=== PATIENT | female | born 1955 | race Two or more races ===

== ENCOUNTER 2022-09-30 08:25 | Day surgery (SDC) | payer OTHER ==
[~2022-09-30] VITALS: Ht 162.6 cm; Wt 84.4 kg
[~2022-09-30 08:25] MED LIST: ATORVASTATIN CA10 MG PO; COZAAR25 MG PO; ESOMEPRAZOLE MA40 MG PO; FAMOTID PO; LINZESS145 MCG PO; VITAMIN B12 PO; VITAMIN D PO
== END 2022-09-30 20:50 | disposition home or self-care (01) ==
LOC: CIR.AMB 08:25
PROVIDERS: ATTEND Obstetrics & Gynecology
DX: D25.0 Submucous leiomyoma of uterus (principal); R87.618 Other abnormal cytological findings on specimens from cervix uteri; I10 Essential (primary) hypertension; Z20.822 Contact with and (suspected) exposure to COVID-19

== ENCOUNTER 2025-04-17 10:00 | Inpatient (IN) | payer OTHER ==
[~2025-04-17] VITALS: Ht 152.4 cm; Wt 84.8 kg
[2025-04-17] MEDS ORDERED: LINZESS145 MCG (14:34)
[2025-04-17] MEDS ORDERED: SYNTHROID112 MCG (14:34)
[2025-04-17] MEDS ORDERED: OMEGA (14:35)
[2025-04-17] MEDS ORDERED: [UNRECOGNIZED DRUG - OTHER] (14:35)
[2025-04-17] MEDS ORDERED: VITAMIN (14:35)
[2025-04-23] MEDS ORDERED: METRONIDAZOLE/SODIUM CHLORIDE 500 MG/100 ML PIGGYBACK IV ONE (07:05)
[2025-04-23] MEDS ORDERED: CEFTRIAXONE SODIUM 2,000 MG VIAL ONE (07:05)
[2025-04-23] MEDS ORDERED: LIDOCAINE HCL 1%/EPINEPHRINE 20ML VIAL IJ ONE (07:23)
[2025-04-23] MEDS ORDERED: BUPIVACAINE HCL/Mpf 0.5% 10ML VIAL ONE (07:23)
[2025-04-23] MEDS ORDERED: SUGAMMADEX SODIUM 200 MG/2 ML VIAL IV ONE (11:13)
[2025-04-23] MEDS ORDERED: RINGERS SOLUTION,LACTATED 1,000 ML IV SCH (12:45)
[2025-04-23] MEDS ORDERED: OxyCODONE HCL 5 MG TABLET (ROXICODONE) PO PRN (12:45)
[2025-04-23] MEDS ORDERED: MORPHINE SULFATE 4 MG/ML CARTRIDGE IV PRN (12:45)
[2025-04-23] MEDS ORDERED: ONDANSETRON HCL 2 MG/ML VIAL IV PRN (12:45)
[2025-04-23] MEDS ORDERED: SIMETHICONE 125 MG CAPSULE PO SCH (13:00)
[2025-04-23] MEDS ORDERED: HYOSCYAMINE SULFATE 0.125 MG TAB.SUBL SL SCH (13:00)
[2025-04-23] MEDS ORDERED: ENALAPRILAT DIHYDRATE 1.25 MG/ML VIAL IV PRN (14:00)
[2025-04-23] MEDS ORDERED: ACETAMINOPHEN 500 MG GEL..CAP PO SCH (14:00)
[2025-04-23 14:38] LABS: ABG PH 7.368 (7.35-7.45); ABG PO2 224.3 mmHg (80-100)
[2025-04-23 14:39] LABS: BICARBONATE 23.1 mmol/l (23-25)
[2025-04-23 14:47] LABS: o2 44 %
[2025-04-23 15:13] LABS: BASO % 0.1 % (0.1-1.2); EOS # 0.00 (0.04-0.54); EOS % 0.0 % (0.7-7.0); LYMPH # 0.76 (1.18-3.74); LYMPH % 5.7 % (19.3-53.1); MEAN PLATELET VOLUME 11.00 fl (9.4-12.4); MONO # 0.75 (0.24-0.82); MONO % 5.6 % (4.7-12.5); NEUT # 11.89 (1.56-6.13); NEUT % 88.4 % (34.0-71.1); RED CELL DISTRIBUTION WIDTH 14.0 % (11.6-14.4)
[2025-04-23] MEDS ORDERED: METOCLOPRAMIDE HCL 5 MG/ML VIAL ONE (16:25)
[2025-04-23] MEDS ORDERED: GABAPENTIN 300 MG CAPSULE PO ONE (16:25)
[2025-04-23] MEDS ORDERED: HYOSCYAMINE SULFATE 0.125 MG TAB.SUBL ONE (16:25)
[2025-04-23] MEDS ORDERED: SIMETHICONE 125 MG CAPSULE PO ONE (16:25)
[2025-04-23] MEDS ORDERED: CELECOXIB 200 MG CAPSULE PO ONE (16:26)
[2025-04-23] MEDS ORDERED: GABAPENTIN 300 MG CAPSULE PO SCH (17:00)
[2025-04-23] MEDS ORDERED: CELECOXIB 200 MG CAPSULE PO SCH (17:00)
[2025-04-23] MEDS ORDERED: METOCLOPRAMIDE HCL 5 MG/ML VIAL IV SCH (17:00)
[2025-04-23 18:32] VITALS: BP 133/80; O2SAT 95
[2025-04-23 19:18] VITALS: O2SAT 98
[2025-04-23] MEDS ORDERED: FAMOTIDINE/PF 20 MG/2 ML VIAL IV PUSH SCH (21:00)
[2025-04-24] VITALS (9 sets, daily range): BP systolic 107–128; BP diastolic 71–76; O2SAT 93–98
[2025-04-24] MEDS ORDERED: PATIENTS OWN MEDICATION (MEDICAMENTO EN PISO) PO SCH (06:00)
[2025-04-24 07:11] LABS: BASO % 0.4 % (0.1-1.2); EOS # 0.01 (0.04-0.54); EOS % 0.1 % (0.7-7.0); LYMPH # 1.30 (1.18-3.74); LYMPH % 9.1 % (19.3-53.1); MEAN PLATELET VOLUME 10.50 fl (9.4-12.4); MONO # 0.94 (0.24-0.82); MONO % 6.6 % (4.7-12.5); NEUT # 11.93 (1.56-6.13); NEUT % 83.4 % (34.0-71.1); RED CELL DISTRIBUTION WIDTH 14.2 % (11.6-14.4)
[2025-04-24 07:31] LABS: BUN CREA RATIO 10.0 (7.0-25.0); CREATININE SERUM 1.03 mg/dL (0.55-1.02); GFR 52.82; GLUCOSE FASTING 110.0 mg/dL (65-100); OSMOLALITY SERUM 283.0 MOSM/KG (275-295)
[2025-04-24] MEDS ORDERED: MAGNESIUM SULFATE IN WATER 50 ML IV ONE (08:15)
[2025-04-24] MEDS ORDERED: LOSARTAN POTASSIUM 25 MG TABLET PO SCH (09:00)
[2025-04-24] MEDS ORDERED: LACTULOSE 20 G/30 ML BLIST.PACK PO SCH (09:00)
[2025-04-24] MEDS ORDERED: LACTOBACILLUS ACIDOPHILUS 1 CAP CAP PO SCH (09:00)
[2025-04-24] MEDS ORDERED: AMINO ACIDS 1 EACH TABLET PO SCH (17:00)
[2025-04-24] MEDS ORDERED: ENOXAPARIN SODIUM 40 MG/0.4 ML SYRINGE SUBCUTANEO SCH (17:00)
[2025-04-24] MEDS ORDERED: ATORVASTATIN CALCIUM 40 MG TABLET PO SCH (17:00)
[2025-04-25] VITALS (9 sets, daily range): BP systolic 105–136; BP diastolic 60–82; O2SAT 90–99
[2025-04-25] MEDS ORDERED: ENOXAPARIN SODIUM 40 MG/0.4 ML SYRINGE SUBCUTANEO SCH (09:00)
[2025-04-25 10:26] LABS: BASO % 0.3 % (0.1-1.2); EOS # 0.22 (0.04-0.54); EOS % 1.0 % (0.7-7.0); LYMPH # 1.36 (1.18-3.74); LYMPH % 6.5 % (19.3-53.1); MEAN PLATELET VOLUME 11.40 fl (9.4-12.4); MONO # 0.76 (0.24-0.82); MONO % 3.6 % (4.7-12.5); NEUT # 18.38 (1.56-6.13); NEUT % 87.6 % (34.0-71.1); RED CELL DISTRIBUTION WIDTH 14.2 % (11.6-14.4)
[2025-04-25 11:03] LABS: BUN CREA RATIO 12.0 (7.0-25.0); CREATININE SERUM 0.89 mg/dL (0.55-1.02); GFR 62.52; GLUCOSE FASTING 116.0 mg/dL (65-100); OSMOLALITY SERUM 274.0 MOSM/KG (275-295)
[2025-04-25] MEDS ORDERED: PIPERACILLIN/TAZOBACTAM SODIUM 3.375 GM in 0.9 % SODIUM CHLORIDE 100 ML IV SCH (12:00)
[2025-04-25] MEDS ORDERED: POTASSIUM PHOS,M-BASIC-D-BASIC 3 MM/ML VIAL IV NR (13:00)
[2025-04-25 17:18] LABS: URINE APPEARANCE Clear; URINE BILIRRUBIN Negative (NEGATIVE); URINE BLOOD Trace; URINE COLOR Yellow; URINE GLUCOSE Negative (NEGATIVE); URINE KETONE Negative (NEGATIVE); URINE LEUKOCYTE Negative; URINE NITRATE Negative; URINE PROTEIN Negative (NEGATIVE); URINE UROBILINOGEN 0.2 E.U./dl
[2025-04-25 17:19] LABS: URINE BACTERIA 11.9 uL (0.0-1933); URINE EPITHELIAL CELLS 8.1 uL (0.0-38.8); URINE RBC 3.0 uL (0.0-20.8); URINE WBC 8.7 uL (0.0-23.2)
[2025-04-25 17:24] LABS: URINE CAST 0.00 uL (0.0-1.40)
[2025-04-26 06:54] LABS: BASO % 0.2 % (0.1-1.2); EOS # 0.33 (0.04-0.54); EOS % 2.2 % (0.7-7.0); LYMPH # 1.10 (1.18-3.74); LYMPH % 7.3 % (19.3-53.1); MEAN PLATELET VOLUME 11.20 fl (9.4-12.4); MONO # 0.65 (0.24-0.82); MONO % 4.3 % (4.7-12.5); NEUT # 12.79 (1.56-6.13); NEUT % 85.2 % (34.0-71.1); RED CELL DISTRIBUTION WIDTH 14.1 % (11.6-14.4)
[2025-04-26 08:08] LABS: ALT/SGPT 62.0 U/L (12-78); AST/SGOT 35.0 U/L (15-37); BILIRUBIN TOTAL 1.06 mg/dL (0.3-1.2); BUN CREA RATIO 13.0 (7.0-25.0); CREATININE SERUM 0.67 mg/dL (0.55-1.02); GFR 86.76; GLOBULINA 2.8 G/DL (2.4-3.5); GLUCOSE FASTING 78.0 mg/dL (65-100); OSMOLALITY SERUM 277.0 MOSM/KG (275-295)
[2025-04-26 08:43] VITALS: BP 113/68; O2SAT 95
[2025-04-26] MEDS ORDERED: SOD FERRIC GLUC COMPLX/SUCROSE 62.5 MG in 0.9 % SODIUM CHLORIDE 50 ML IV SCH (10:04)
[2025-04-26] MEDS ORDERED: Cyanocobalamin/Mecobalamin 1 TAB.SL SL SCH (10:05)
[2025-04-26 13:52] LABS: ABG PH 7.467 (7.35-7.45); ABG PO2 76.6 mmHg (80-100); BICARBONATE 23.5 mmol/l (23-25)
[2025-04-26 14:51] LABS: o2 21 %
[2025-04-26 16:11] VITALS: BP 121/72; O2SAT 98
[2025-04-27 00:36] VITALS: BP 98/61; O2SAT 95
[2025-04-27 07:48] LABS: BASO % 0.3 % (0.1-1.2); EOS # 0.36 (0.04-0.54); EOS % 2.7 % (0.7-7.0); LYMPH # 1.27 (1.18-3.74); LYMPH % 9.7 % (19.3-53.1); MEAN PLATELET VOLUME 10.60 fl (9.4-12.4); MONO # 0.79 (0.24-0.82); MONO % 6.0 % (4.7-12.5); NEUT # 10.59 (1.56-6.13); NEUT % 80.7 % (34.0-71.1); RED CELL DISTRIBUTION WIDTH 14.2 % (11.6-14.4)
[2025-04-27 08:00] VITALS: BP 112/73; O2SAT 96
[2025-04-27 08:06] LABS: BUN CREA RATIO 11.0 (7.0-25.0); CREATININE SERUM 0.62 mg/dL (0.55-1.02); GFR 94.89; GLUCOSE FASTING 72.0 mg/dL (65-100); OSMOLALITY SERUM 280.0 MOSM/KG (275-295)
[2025-04-27 16:00] VITALS: BP 123/60; O2SAT 97
[2025-04-27] MEDS ORDERED: AMINO ACIDS/PROTEIN HYDROLYS 30 ML BLIST.PACK PO SCH (17:00)
[2025-04-28 00:05] VITALS: BP 142/77; O2SAT 95
[2025-04-28 08:00] VITALS: BP 133/79; O2SAT 95
[2025-04-28 16:00] VITALS: BP 121/65; O2SAT 95
[2025-04-29] VITALS: BP 127/76; O2SAT 95
[2025-04-29 06:14] LABS: BASO % 0.3 % (0.1-1.2); EOS # 0.29 (0.04-0.54); EOS % 2.9 % (0.7-7.0); LYMPH # 1.75 (1.18-3.74); LYMPH % 17.6 % (19.3-53.1); MEAN PLATELET VOLUME 10.00 fl (9.4-12.4); MONO # 0.97 (0.24-0.82); MONO % 9.8 % (4.7-12.5); NEUT # 6.43 (1.56-6.13); NEUT % 64.8 % (34.0-71.1); RED CELL DISTRIBUTION WIDTH 14.2 % (11.6-14.4)
[2025-04-29 06:42] LABS: BUN CREA RATIO 17.0 (7.0-25.0); CREATININE SERUM 0.59 mg/dL (0.55-1.02); GFR 100.48; GLUCOSE FASTING 80.0 mg/dL (65-100); OSMOLALITY SERUM 281.0 MOSM/KG (275-295)
[2025-04-29 07:35] VITALS: BP 135/78; O2SAT 97
[2025-04-29 07:35] LABS: BAND MAN 1.0 %; LYMPHOCYTE MAN 26.0 %; METAMYELOCYTE 2.0 %; MONOCYTE MAN 2.0 %; NEUTROPHILS MAN 65.0 %
[2025-04-29] MEDS ORDERED: GABAPENTIN 100 MG CAPSULE PO SCH (09:00)
[2025-04-29] MEDS ORDERED: POTASSIUM CHLORIDE 8 MEQ TABLET PO STA (11:43)
[2025-04-29] MEDS ORDERED: POTASSIUM CHLORIDE 20MEQ/100ML H2O PB IV ONE (11:45)
[2025-04-29 15:53] VITALS: BP 136/75; O2SAT 97
[2025-04-29] MEDS ORDERED: GABAPENTIN 300 MG CAPSULE PO SCH (21:00)
[2025-04-30 01:28] VITALS: BP 133/75; O2SAT 99
[2025-04-30 09:23] VITALS: BP 144/77; O2SAT 96
[2025-04-30 17:04] VITALS: BP 152/76; O2SAT 95
[2025-05-01 01:18] VITALS: BP 120/74; O2SAT 98
[2025-05-01 08:00] VITALS: BP 129/75; O2SAT 97
[2025-05-01 16:26] VITALS: BP 131/76; O2SAT 97
== END 2025-05-01 16:42 | disposition home or self-care (01) | DRG 332 ==
LOC: O/R 04-23 06:00 → SURH 04-23 07:00
PROVIDERS: Internal Medicine Geriatric Medicine; ADMIT Colon & Rectal Surgery; ATTEND Colon & Rectal Surgery
PROC: 0DJD8ZZ Inspection of Lower Intestinal Tract, Via Natural or Artificial Opening Endoscopic (ICD-10-PCS; 2025-04-23)
PROC: 8E0W4CZ Robotic Assisted Procedure of Trunk Region, Percutaneous Endoscopic Approach (ICD-10-PCS; 2025-04-23)
PROC: 4A12X4Z Monitoring of Cardiac Electrical Activity, External Approach (ICD-10-PCS; 2025-04-23)
PROC: 0DTP4ZZ Resection of Rectum, Percutaneous Endoscopic Approach (ICD-10-PCS; principal; 2025-04-23 07:00)
DX: K57.32 Diverticulitis of large intestine without perforation or abscess without bleeding (principal); J18.9 Pneumonia, unspecified organism; I11.9 Hypertensive heart disease without heart failure; E78.5 Hyperlipidemia, unspecified; E03.9 Hypothyroidism, unspecified; E66.9 Obesity, unspecified; R73.01 Impaired fasting glucose; G47.30 Sleep apnea, unspecified; D64.9 Anemia, unspecified
CPT/HCPCS: 44207; 44213; 45300; 93228; S2900

== ENCOUNTER 2025-05-09 13:02 | Emergency (ER) | payer OTHER ==
[~2025-05-09] VITALS: Ht 162.6 cm; Wt 84.8 kg
[~2025-05-09 13:02] MED LIST changes: +LINZESS145 MCG; +OMEGA; +SYNTHROID112 MCG; +VITAMIN; +[UNRECOGNIZED DRUG - OTHER]
[2025-05-09] MEDS ORDERED: 0.9 % SODIUM CHLORIDE 1,000 ML IV ONE (15:15)
[2025-05-09] MEDS ORDERED: ONDANSETRON HCL 2 MG/ML VIAL IV ONE (15:15)
[2025-05-09] MEDS ORDERED: FAMOTIDINE/PF 20 MG/2 ML VIAL IV ONE (15:15)
[2025-05-09] MEDS ORDERED: ACETAMINOPHEN 500 MG GEL..CAP PO ONE ×2 (15:15→15:34)
[2025-05-09] MEDS ORDERED: KETOROLAC TROMETHAMINE 30 MG VIAL IV ONE (15:15)
[2025-05-09] MEDS ORDERED: KETOROLAC TROMETHAMINE 30 MG VIAL ONE (15:33)
[2025-05-09] MEDS ORDERED: FAMOTIDINE/PF 20 MG/2 ML VIAL ONE (15:34)
[2025-05-09] MEDS ORDERED: ONDANSETRON HCL 2 MG/ML VIAL ONE (15:34)
[2025-05-09 15:49] LABS: BASO % 0.6 % (0.1-1.2); EOS # 0.03 (0.04-0.54); EOS % 0.3 % (0.7-7.0); LYMPH # 0.77 (1.18-3.74); LYMPH % 6.9 % (19.3-53.1); MEAN PLATELET VOLUME 9.30 fl (9.4-12.4); MONO # 0.81 (0.24-0.82); MONO % 7.2 % (4.7-12.5); NEUT # 9.48 (1.56-6.13); NEUT % 84.6 % (34.0-71.1); RED CELL DISTRIBUTION WIDTH 15.3 % (11.6-14.4)
[2025-05-09 15:59] LABS: ERYTHROCYTE SEDIMENTATION RATE 110 mm/hr (0-30)
[2025-05-09 17:10] LABS: ALT/SGPT 26.0 U/L (12-78); AST/SGOT 25.0 U/L (15-37); BILIRUBIN TOTAL 0.53 mg/dL (0.3-1.2); BUN CREA RATIO 10.0 (7.0-25.0); CREATININE SERUM 0.77 mg/dL (0.55-1.02); GFR 73.9; GLOBULINA 3.7 G/DL (2.4-3.5); GLUCOSE FASTING 120.0 mg/dL (65-100); OSMOLALITY SERUM 271.0 MOSM/KG (275-295)
[2025-05-09 17:19] LABS: URINE APPEARANCE Cloudy; URINE BILIRRUBIN Negative (NEGATIVE); URINE BLOOD Trace; URINE COLOR Yellow; URINE GLUCOSE Negative (NEGATIVE); URINE KETONE Negative (NEGATIVE); URINE LEUKOCYTE Trace; URINE NITRATE Negative; URINE PROTEIN 30 (NEGATIVE); URINE UROBILINOGEN 1.0 E.U./dl
[2025-05-09 17:22] LABS: URINE BACTERIA 25.2 uL (0.0-1933); URINE EPITHELIAL CELLS 53.6 uL (0.0-38.8); URINE RBC 18.4 uL (0.0-20.8); URINE WBC 37.0 uL (0.0-23.2)
[2025-05-09 17:25] LABS: INR 1.09
[2025-05-09 17:48] LABS: URINE CAST 0.00 uL (0.0-1.40)
[2025-05-09 17:49] LABS: URINE CRYSTALS FEW /HPF; URINE MUCUS SCANT
[2025-05-09 17:50] LABS: TYPE CELLS SQUAMOUS
[2025-05-09] MEDS ORDERED: AMOX-CLAV 875-1 EAC1 PO (21:56)
[2025-05-09] MEDS ORDERED: ACETAMINOPHEN500 M2 PO (21:56)
[2025-05-09] MEDS ORDERED: DICY20TA PO (21:56)
== END 2025-05-09 22:16 | disposition home or self-care (01) ==
LOC: ER 13:03
PROVIDERS: Emergency Medicine
DX: R10.9 Unspecified abdominal pain (principal); Z90.49 Acquired absence of other specified parts of digestive tract; I10 Essential (primary) hypertension
CPT/HCPCS: 36415; 74177; 93005; Q9965

== ENCOUNTER 2025-05-15 18:03 | Emergency (ER) | payer OTHER ==
[~2025-05-15] VITALS: Ht 162.6 cm; Wt 77.1 kg
[~2025-05-15 18:03] MED LIST changes: +ACETAMINOPHEN500 M2 PO; +AMOX-CLAV 875-1 EAC1 PO; +DICY20TA PO
[2025-05-15] MEDS ORDERED: KETOROLAC TROMETHAMINE 30 MG VIAL IU ONE (19:30)
[2025-05-15] MEDS ORDERED: ACETAMINOPHEN 325 MG TABLET PO ONE ×2 (19:30→19:36)
[2025-05-15] MEDS ORDERED: 0.9 % SODIUM CHLORIDE 1,000 ML IV ONE (19:30)
[2025-05-15] MEDS ORDERED: FAMOTIDINE/PF 20 MG/2 ML VIAL IV ONE (19:30)
[2025-05-15] MEDS ORDERED: ONDANSETRON HCL 2 MG/ML VIAL IV ONE (19:30)
[2025-05-15] MEDS ORDERED: FAMOTIDINE/PF 20 MG/2 ML VIAL ONE (19:36)
[2025-05-15] MEDS ORDERED: ONDANSETRON HCL 2 MG/ML VIAL ONE (19:36)
[2025-05-15] MEDS ORDERED: KETOROLAC TROMETHAMINE 30 MG VIAL ONE (19:36)
[2025-05-15 20:58] LABS: BASO % 0.7 % (0.1-1.2); EOS # 0.07 (0.04-0.54); EOS % 1.0 % (0.7-7.0); LYMPH # 1.41 (1.18-3.74); LYMPH % 20.6 % (19.3-53.1); MEAN PLATELET VOLUME 9.30 fl (9.4-12.4); MONO # 0.89 (0.24-0.82); NEUT # 4.37 (1.56-6.13); NEUT % 64.0 % (34.0-71.1); RED CELL DISTRIBUTION WIDTH 14.7 % (11.6-14.4)
[2025-05-15 20:59] LABS: ALT/SGPT 35.0 U/L (12-78); AST/SGOT 25.0 U/L (15-37); BILIRUBIN TOTAL 0.3 mg/dL (0.3-1.2); BUN CREA RATIO 12.0 (7.0-25.0); CREATININE SERUM 0.83 mg/dL (0.55-1.02); GFR 67.77; GLOBULINA 4.4 G/DL (2.4-3.5); GLUCOSE FASTING 133.0 mg/dL (65-100); OSMOLALITY SERUM 271.0 MOSM/KG (275-295)
[2025-05-15 21:04] LABS: MONO % 13.0 % (4.7-12.5)
[2025-05-15 21:12] LABS: COVID-19 AG NEGATIVE (NEGATIVE)
[2025-05-15 21:27] LABS: URINE APPEARANCE Clear; URINE BACTERIA 58.7 uL (0.0-1933); URINE BILIRRUBIN Negative (NEGATIVE); URINE BLOOD Negative; URINE COLOR Yellow; URINE EPITHELIAL CELLS 16.1 uL (0.0-38.8); URINE GLUCOSE Negative (NEGATIVE); URINE KETONE Negative (NEGATIVE); URINE LEUKOCYTE Negative; URINE NITRATE Negative; URINE PROTEIN Negative (NEGATIVE); URINE RBC 5.2 uL (0.0-20.8); URINE UROBILINOGEN 0.2 E.U./dl; URINE WBC 19.1 uL (0.0-23.2)
[2025-05-15 21:37] LABS: URINE CAST 0.14 uL (0.0-1.40)
== END 2025-05-16 00:34 | disposition home or self-care (01) ==
LOC: ER 18:03
PROVIDERS: General Practice
DX: R10.32 Left lower quadrant pain (principal); J98.11 Atelectasis; J47.9 Bronchiectasis, uncomplicated; I10 Essential (primary) hypertension; Z98.890 Other specified postprocedural states; Z20.822 Contact with and (suspected) exposure to COVID-19
CPT/HCPCS: 36415; 71250; 74177; 96365; 96366; 99284; J1885; J2405; J3490; J7030; Q9965

== ENCOUNTER 2025-06-14 13:57 | Emergency (ER) | payer OTHER ==
[~2025-06-14] VITALS: Ht 162.6 cm; Wt 78.9 kg
[2025-06-14 15:40] LABS: BASO % 0.6 % (0.1-1.2); EOS # 0.06 (0.04-0.54); EOS % 0.5 % (0.7-7.0); LYMPH # 2.47 (1.18-3.74); LYMPH % 20.8 % (19.3-53.1); MEAN PLATELET VOLUME 9.20 fl (9.4-12.4); MONO # 0.85 (0.24-0.82); MONO % 7.2 % (4.7-12.5); NEUT # 8.35 (1.56-6.13); NEUT % 70.5 % (34.0-71.1); RED CELL DISTRIBUTION WIDTH 15.1 % (11.6-14.4)
[2025-06-14 16:08] LABS: ALT/SGPT 20.0 U/L (12-78); AST/SGOT 20.0 U/L (15-37); BILIRUBIN TOTAL 0.3 mg/dL (0.3-1.2); BUN CREA RATIO 17.0 (7.0-25.0); CREATININE SERUM 0.77 mg/dL (0.55-1.02); GFR 73.9; GLOBULINA 4.3 G/DL (2.4-3.5); GLUCOSE FASTING 132.0 mg/dL (65-100); OSMOLALITY SERUM 280.0 MOSM/KG (275-295)
[2025-06-14 16:15] LABS: URINE APPEARANCE Clear; URINE BILIRRUBIN Negative (NEGATIVE); URINE BLOOD Negative; URINE COLOR Yellow; URINE GLUCOSE Negative (NEGATIVE); URINE KETONE Trace (NEGATIVE); URINE LEUKOCYTE Small; URINE NITRATE Negative; URINE PROTEIN Negative (NEGATIVE); URINE UROBILINOGEN 0.2 E.U./dl
[2025-06-14 16:18] LABS: URINE BACTERIA 92.3 uL (0.0-1933); URINE EPITHELIAL CELLS 22.7 uL (0.0-38.8); URINE RBC 6.4 uL (0.0-20.8); URINE WBC 26.6 uL (0.0-23.2)
[2025-06-14 16:19] LABS: URINE CAST 0.14 uL (0.0-1.40)
[2025-06-14 16:28] LABS: COVID-19 AG NEGATIVE (NEGATIVE)
[2025-06-14] MEDS ORDERED: KETOROLAC TROMETHAMINE 30 MG VIAL IM STA (17:13)
[2025-06-14] MEDS ORDERED: KETOROLAC TROMETHAMINE 30 MG VIAL ONE (18:00)
== END 2025-06-14 19:29 | disposition home or self-care (01) ==
LOC: ER 13:57
PROVIDERS: General Practice
DX: R30.0 Dysuria (principal); I10 Essential (primary) hypertension; K64.8 Other hemorrhoids; Z20.822 Contact with and (suspected) exposure to COVID-19

== ENCOUNTER 2025-06-27 13:25 | Inpatient (IN) | payer OTHER ==
[~2025-06-27] VITALS: Ht 162.6 cm; Wt 0.5 kg
[2025-06-27] MEDS ORDERED: PEPCID AC20 MG (15:39)
--- NOTE | 2025-06-27 15:39 | NUR ---
PACIENTE ALERTA Y ORIENTADA X 3. REFIERE DESDE RANDALL TOS , CONGESTION, ARDOR EN [place] Y SECRESIONES.
[2025-06-27] MEDS ORDERED: PANTOPRAZOLE SODIUM 40 MG/VIAL VIAL IV STA ×2 (16:14→16:21)
[2025-06-27] MEDS ORDERED: ONDANSETRON HCL 2 MG/ML VIAL IV STA (16:15)
[2025-06-27] MEDS ORDERED: DICYCLOMINE HCL 20 MG TABLET PO STA (16:15)
[2025-06-27] MEDS ORDERED: MORPHINE SULFATE 2 MG/ML SYRINGE IV STA (16:15)
[2025-06-27] MEDS ORDERED: 0.9 % SODIUM CHLORIDE 500 ML IV STA (16:15)
[2025-06-27] MEDS ORDERED: ONDANSETRON HCL 2 MG/ML VIAL ONE (17:12)
[2025-06-27] MEDS ORDERED: KETOROLAC TROMETHAMINE 30 MG VIAL IM STA (17:40)
[2025-06-27] MEDS ORDERED: KETOROLAC TROMETHAMINE 30 MG VIAL ONE (17:41)
[2025-06-27 17:46] LABS: BASO % 0.2 % (0.1-1.2); EOS # 0.09 (0.04-0.54); EOS % 0.6 % (0.7-7.0); LYMPH # 2.79 (1.18-3.74); LYMPH % 19.6 % (19.3-53.1); MEAN PLATELET VOLUME 9.30 fl (9.4-12.4); MONO # 0.60 (0.24-0.82); MONO % 4.2 % (4.7-12.5); NEUT # 10.69 (1.56-6.13); NEUT % 75.1 % (34.0-71.1); RED CELL DISTRIBUTION WIDTH 14.7 % (11.6-14.4)
--- NOTE | 2025-06-27 18:05 | NUR ---
SE EDUCA PTE SOBRE TX Y ESTA REFIERE ENTENDER Y ACEPTAR. SE PROCEDE A COLECTAR MUESTRAS DE LABORATORIO Y CANALIZAR BAJO MEDIDAS ASEPTICAS Y SE ADMINISTRAN MEIDCAMENTOS RODRÍGUEZ ORDEN MEDICA. SE REALIZA EKG Y SE LE ENTREGA A DR BRADY.
[2025-06-27 18:36] LABS: ALT/SGPT 32.0 U/L (12-78); AST/SGOT 16.0 U/L (15-37); BILIRUBIN TOTAL 0.55 mg/dL (0.3-1.2); BUN CREA RATIO 20.0 (7.0-25.0); CREATININE SERUM 0.86 mg/dL (0.55-1.02); GFR 65.05; GLOBULINA 4.1 G/DL (2.4-3.5); GLUCOSE FASTING 131.0 mg/dL (65-100); OSMOLALITY SERUM 272.0 MOSM/KG (275-295)
[2025-06-27] MEDS ORDERED: CEFTRIAXONE SODIUM 1,000 MG VIAL IV STA (18:40)
[2025-06-27] MEDS ORDERED: CEFTRIAXONE SODIUM 1,000 MG VIAL ONE (18:41)
[2025-06-27] MEDS ORDERED: CIPROFLOXACIN IN 5 % DEXTROSE 200 ML IV SCH (21:46)
[2025-06-27] MEDS ORDERED: METRONIDAZOLE/SODIUM CHLORIDE 500 MG/100 ML PIGGYBACK IV SCH (21:46)
[2025-06-27] MEDS ORDERED: 0.9 % SODIUM CHLORIDE 1,000 ML IV STA (21:47)
[2025-06-27] MEDS ORDERED: MORPHINE SULFATE 4 MG/ML CARTRIDGE IV PRN (22:00)
[2025-06-27] MEDS ORDERED: CIPROFLOXACIN IN 5 % DEXTROSE 400 MG/200 ML PIGGYBAG IV ONE (22:12)
[2025-06-27] MEDS ORDERED: METRONIDAZOLE/SODIUM CHLORIDE 500 MG/100 ML PIGGYBACK IV ONE (22:12)
[2025-06-27] MEDS ORDERED: CIPROFLOXACIN IN 5 % DEXTROSE 400 MG/200 ML PIGGYBAG IV STA (22:28)
[2025-06-27] MEDS ORDERED: FAMOTIDINE/PF 20 MG/2 ML VIAL IV SCH (22:29)
[2025-06-27] MEDS ORDERED: ENALAPRILAT DIHYDRATE 1.25 MG/ML VIAL IV PRN (22:30)
[2025-06-27] MEDS ORDERED: DEXTROSE 5 %-0.45 % SOD CHLORD 1,000 ML IV SCH (22:30)
[2025-06-27 23:28] LABS: INR 1.06
[2025-06-28 01:24] LABS: URINE APPEARANCE Clear; URINE BILIRRUBIN Negative (NEGATIVE); URINE BLOOD Negative; URINE COLOR Yellow; URINE GLUCOSE Negative (NEGATIVE); URINE KETONE Negative (NEGATIVE); URINE LEUKOCYTE Trace; URINE NITRATE Negative; URINE PROTEIN Negative (NEGATIVE); URINE UROBILINOGEN 0.2 E.U./dl
[2025-06-28 01:49] LABS: URINE BACTERIA 82.3 uL (0.0-1933); URINE EPITHELIAL CELLS 14.5 uL (0.0-38.8); URINE RBC 3.8 uL (0.0-20.8); URINE WBC 30.3 uL (0.0-23.2)
[2025-06-28 01:50] LABS: URINE CAST 0.00 uL (0.0-1.40)
[2025-06-28 07:34] LABS: BASO % 0.6 % (0.1-1.2); EOS # 0.16 (0.04-0.54); EOS % 2.3 % (0.7-7.0); LYMPH # 2.43 (1.18-3.74); LYMPH % 34.2 % (19.3-53.1); MEAN PLATELET VOLUME 10.20 fl (9.4-12.4); MONO # 0.50 (0.24-0.82); MONO % 7.0 % (4.7-12.5); NEUT # 3.96 (1.56-6.13); NEUT % 55.8 % (34.0-71.1); RED CELL DISTRIBUTION WIDTH 14.8 % (11.6-14.4)
[2025-06-28 07:53] LABS: ERYTHROCYTE SEDIMENTATION RATE 27 mm/hr (0-30)
[2025-06-28 08:00] VITALS: BP 121/71; O2SAT 100
[2025-06-28 08:00] LABS: BUN CREA RATIO 19.0 (7.0-25.0); CREATININE SERUM 0.78 mg/dL (0.55-1.02); GFR 72.8; GLUCOSE FASTING 92.0 mg/dL (65-100); OSMOLALITY SERUM 276.0 MOSM/KG (275-295)
[2025-06-28] MEDS ORDERED: LACTOBACILLUS ACIDOPHILUS 1 CAP CAP PO SCH (09:00)
[2025-06-28] MEDS ORDERED: LOSARTAN POTASSIUM 25 MG TABLET PO SCH (09:00)
[2025-06-28] MEDS ORDERED: ENOXAPARIN SODIUM 40 MG/0.4 ML SYRINGE SUBCUTANEO SCH (09:00)
[2025-06-28 16:00] VITALS: BP 116/61; O2SAT 98
[2025-06-29 00:30] VITALS: BP 111/63; O2SAT 98
[2025-06-29] MEDS ORDERED: LEVOTHYROXINE SODIUM 112 MCG TABLET PO SCH (06:00)
[2025-06-29 08:00] VITALS: BP 128/69; O2SAT 95
[2025-06-29 10:59] LABS: BASO % 0.5 % (0.1-1.2); EOS # 0.12 (0.04-0.54); EOS % 1.5 % (0.7-7.0); LYMPH # 2.04 (1.18-3.74); LYMPH % 26.3 % (19.3-53.1); MEAN PLATELET VOLUME 9.80 fl (9.4-12.4); MONO # 0.45 (0.24-0.82); MONO % 5.8 % (4.7-12.5); NEUT # 5.10 (1.56-6.13); NEUT % 65.6 % (34.0-71.1); RED CELL DISTRIBUTION WIDTH 14.4 % (11.6-14.4)
[2025-06-29] MEDS ORDERED: HYDROCORTISONE ACETATE 25 MG/SUPP.RECT SUPP.RECT RECTAL ONE (11:30)
[2025-06-29] MEDS ORDERED: HYDROCORTISONE ACETATE 25 MG/SUPP.RECT SUPP.RECT RECTAL SCH (21:00)
[2025-06-30] VITALS: BP 124/74; O2SAT 96
[2025-06-30 08:00] VITALS: BP 127/71; O2SAT 98
[2025-06-30 16:00] VITALS: BP 132/72; O2SAT 98
[2025-07-01 00:30] VITALS: BP 126/73; O2SAT 98
[2025-07-01 07:06] LABS: BASO % 0.9 % (0.1-1.2); EOS # 0.08 (0.04-0.54); EOS % 1.2 % (0.7-7.0); LYMPH # 2.40 (1.18-3.74); LYMPH % 36.5 % (19.3-53.1); MEAN PLATELET VOLUME 9.40 fl (9.4-12.4); MONO # 0.52 (0.24-0.82); MONO % 7.9 % (4.7-12.5); NEUT # 3.50 (1.56-6.13); NEUT % 53.2 % (34.0-71.1); RED CELL DISTRIBUTION WIDTH 14.8 % (11.6-14.4)
[2025-07-01 08:00] VITALS: BP 124/71; O2SAT 98
[2025-07-01 08:09] LABS: BUN CREA RATIO 4.0 (7.0-25.0); CREATININE SERUM 0.72 mg/dL (0.55-1.02); GFR 79.85; GLUCOSE FASTING 86.0 mg/dL (65-100); OSMOLALITY SERUM 277.0 MOSM/KG (275-295)
[2025-07-01] MEDS ORDERED: METRONIDAZOLE500 MG PO (13:35)
[2025-07-01] MEDS ORDERED: SYNTHROID112 MCG PO (13:35)
[2025-07-01] MEDS ORDERED: ANUCORT-HC25 MG RECTAL (13:35)
[2025-07-01] MEDS ORDERED: PEPCID AC20 MG PO (13:35)
[2025-07-01] MEDS ORDERED: COZAAR25 MG PO (13:35)
[2025-07-01] MEDS ORDERED: CIPRO500 MG PO (13:35)
[2025-07-01] MEDS ORDERED: INTESTINEX680 M1 PO (13:35)
== END 2025-07-01 16:01 | disposition home or self-care (01) | DRG 392 ==
LOC: ER 13:26 → SURG 22:46
PROVIDERS: General Practice; ADMIT Internal Medicine Geriatric Medicine; ATTEND Internal Medicine Geriatric Medicine
PROC: BW21YZZ Computerized Tomography (CT Scan) of Abdomen and Pelvis using Other Contrast (ICD-10-PCS; principal; 2025-06-27)
DX: K57.32 Diverticulitis of large intestine without perforation or abscess without bleeding (principal); K21.9 Gastro-esophageal reflux disease without esophagitis; E03.8 Other specified hypothyroidism; I11.9 Hypertensive heart disease without heart failure; E78.5 Hyperlipidemia, unspecified; R14.3 Flatulence